=== PATIENT | male | born 1960 | race Caucasian/White ===

== ENCOUNTER → 2016-08-31 | Outpatient (CLI) | payer OTHER ==
--- NOTE | 2016-08-31 10:10 | CTL ---
EXAMINATION TYPE: CT Low Dose lung cancer screening DATE OF EXAM ORDERED: 08/31/2016 HISTORY: 56-year-old male history of tobacco use. Lung cancer screening CT DLP: 89.[address] CTDI: 2.95 mGy Automated exposure control for dose reduction was used. SCREENING VISIT: Baseline COMPARISON: None TECHNIQUE: Low dose computed tomography scan was performed through the chest at 1 mm thick sections and reconstructed images in the coronal plane at 1 mm thick sections. Coronal and sagittal reconstructions performed. CT DIAGNOSTIC QUALITY: Limited, but interpretable FINDINGS: The heart is normal size without pericardial effusion. Coronary vessel calcifications are present and are remarkable for coronary artery disease. Aorta is normal caliber with conventional arch vessel branching anatomy. A few nonenlarged mediastinal lymph nodes are present. No thoracic lymphadenopathy by CT size criteria. Mild to moderate diffuse bronchial wall thickening and mild centrilobular emphysema is demonstrated. Prominent artifacts from low-dose radiation protocol and patient's large body habitus. 3 mm pulmonary nodule right upper lobe axial image 49. 3 mm pulmonary nodule peripheral right upper lobe axial image 64. 4 mm pulmonary nodule peripheral right mid lung axial image 86. Mild dependent atelectasis posteriorly. There may be some subtle upper lung predominant, tiny 2 mm and smaller centrilobular nodules. No consolidation or pleural effusion. Visualized upper abdomen shows no obvious abnormality allowing for low dose technique and artifacts. Bones: Mild endplate spondylosis lower thoracic spine. No osseous destructive process. IMPRESSION: 1. Lung RADS 2 - benign appearance/behavior-- 3 and 4 mm right lung nodules at baseline. 2. COPD with mild emphysema and prominent component of chronic bronchitis versus superimposed acute bronchitis. 3. There appear to be tiny centrilobular nodules in the upper lungs. Findings may be seen in subacute hypersensitivity pneumonitis or respiratory bronchiolitis. Clinically correlate. RECOMMENDATION: 1. Continue annual screening with low-dose CT in 12 months. 2. Smoking cessation. MTDD
== END | disposition home or self-care (01) ==
LOC: RADCTMAIN 08:51
PROVIDERS: ATTEND Family Medicine
DX: Z12.2 Encounter for screening for malignant neoplasm of respiratory organs (principal); J43.9 Emphysema, unspecified; F17.210 Nicotine dependence, cigarettes, uncomplicated; R91.8 Other nonspecific abnormal finding of lung field

== ENCOUNTER → 2016-11-17 | Outpatient (CLI) | payer OTHER ==
--- NOTE | 2016-11-17 13:28 | XR ---
EXAMINATION TYPE: XR hand complete RT DATE OF EXAM: 11/17/2016 CLINICAL HISTORY: Right hand pain worse second digit after injury 2 months ago. TECHNIQUE: Frontal, lateral and oblique images of the right hand are obtained. COMPARISON: None. FINDINGS: There is no acute fracture/dislocation evident in the right hand. There is mild to moderat e spurring and joint space loss second DIP joint. There is mild to moderate spurring and joint space loss base of first metacarpal. The overlying soft tissue appears unremarkable. IMPRESSION: There is no acute fracture or dislocation in the right hand with particular attention to second digit of right hand.
== END ==
LOC: RADXRMAIN 12:55
PROVIDERS: ATTEND Family Medicine
DX: M79.641 Pain in right hand (principal)

== ENCOUNTER 2017-07-12 10:21 | Day surgery (SDC) | payer OTHER ==
[2017-07-07 14:52] VITALS: BMI 34.0
[~2017-07-12 10:21] MED LIST: LACTATED RINGERS 1,000 ML IV SCH
[2017-07-12 10:41] VITALS: TEMP 97.7
[2017-07-12] MEDS ORDERED: LIDOCAINE 1% INJ 10MG/ML (20 ML MDV) ONE (11:29)
[2017-07-12] MEDS ORDERED: PROPOFOL 10 MG/ML 20 ML VIAL IV ONE (11:29)
[2017-07-12 12:11] VITALS: RESP 16
--- NOTE | 2017-07-12 12:15 | P.PCN ---
Date of Procedure: 07/12/17 Procedure(s) Performed: Procedure: Colonoscopy. Preoperative diagnosis: Change in bowel habits. Postoperative diagnosis: Less than ideal preparation, otherwise, exam revealed no obvious pathology. Preparation: HalfLytely prep. Sedation: Was provided by anesthesia. Brief clinical history: The patient is a 57-year-old male who is referred for this evaluation because of issues with constipation. He had a prior colonoscopy more than 5 years ago. This evaluation is to assess for neoplasia or other pathology. Procedure: With the patient on his left lateral decubitus position and after informed consent and adequate sedation, the perianal area was inspected and it did not show any fissures or fistulas. There were no masses felt on digital rectal examination. The Olympus CFQ 160L video colonoscope was then inserted in the rectum in the usual fashion and advanced. Unfortunately, the preparation was less than ideal, especially on the right side, but no obvious pathology was noted. Small and diminutive polyps and superficial pathology could have been missed because of the preparation. I retroflexed the endoscope in the rectum before the endoscope was withdrawn. The patient tolerated the procedure well. Plan: The patient was reassured. Discussed dietary measures. He will follow up with you as planned and I recommended repeat exam in 2-3 years after a two- day preparation.
[2017-07-12 12:28] VITALS: BP 131/73; PULSE 54
== END 2017-07-12 12:58 | disposition home or self-care (01) ==
LOC: ORWHC2ENDO 10:21
DX: K59.00 Constipation, unspecified (principal); I10 Essential (primary) hypertension; E78.5 Hyperlipidemia, unspecified; K21.9 Gastro-esophageal reflux disease without esophagitis; I25.10 Atherosclerotic heart disease of native coronary artery without angina pectoris; Z95.5 Presence of coronary angioplasty implant and graft; Z79.82 Long term (current) use of aspirin; Z79.899 Other long term (current) drug therapy; Z88.6 Allergy status to analgesic agent; Z91.030 Bee allergy status; Z91.040 Latex allergy status; F17.210 Nicotine dependence, cigarettes, uncomplicated
CPT/HCPCS: 45378; J2001; J2704

== ENCOUNTER → 2017-12-19 | Outpatient (CLI) | payer OTHER ==
--- NOTE | 2017-12-20 08:42 | CTL ---
EXAMINATION TYPE: CT Low Dose Lung DATE OF EXAM ORDERED: 12/19/2017 COMPARISON: 08/31/2016 HISTORY: . Low Dose CT Lung Screening CT DLP: [address] CTDI: 3.6 mGy IV CONTRAST USED: None. SCREENING VISIT: First visit COMPARISON: None. TECHNIQUE: Low dose computed tomography scan was performed through the chest at 1 millimeter thick se ctions and reconstructed images in the coronal plane at [address] DIAGNOSTIC QUALITY: Satisfactory FINDINGS: 3 mm pulmonary nodule right upper lobe image 74 is stable. 3 mm pulmonary nodule right upper lobe image 47 is unchanged. 3 mm pulmonary nodule right upper lobe at its periphery image 1 is stable. 4 mm pulmonary nodule left upper lobe medially image 50 is stable. No new nodules are seen. LUNGS: COPD: Severity: Moderate Fibrosis: Severity: Mild Lymph nodes: None Other findings: None RIGHT PLEURAL SPACE: Effusion: None Calcification: None Thickening: None Pneumothorax: None LEFT PLEURAL SPACE: Effusion: None Calcification: None Thickening: None Pneumothorax: None HEART: Heart Size: Mildly enlarged Coronary calcification: Mild Pericardial effusion: None OTHER FINDINGS: Upper abdomen: No significant abnormality Bony thorax: Degenerative changes Supraclavicular region: No significant abnormalityOther: No significant abnormalityI IMPRESSION: 1. Lung RADS 2 benign appearance/behavior 2. COPD with emphysema and prominent chronic bronchitis. 3. Mild subpleural fibrosis. FOLLOW UP CT CHEST RECOMMENDATION: 1. Follow-up screening in one year 2. Smoking cessation.
== END | disposition home or self-care (01) ==
LOC: RADCTMAIN 16:12
PROVIDERS: ATTEND Family Medicine
DX: Z12.2 Encounter for screening for malignant neoplasm of respiratory organs (principal); J43.9 Emphysema, unspecified; J40 Bronchitis, not specified as acute or chronic; J84.10 Pulmonary fibrosis, unspecified; F17.200 Nicotine dependence, unspecified, uncomplicated

== ENCOUNTER → 2018-08-18 | Outpatient (CLI) | payer BC ==
[2018-08-18 10:05] LABS: HCT 51.6 % (39.0-53.0); HGB 16.4 gm/dL (13.0-17.5); MCHC 31.8 g/dL (31.0-37.0); MCV 97.4 fL (80.0-100.0); Mean Platelet Volume 7.4; Platelet Count 235 k/uL (150-450); RBC 5.29 m/uL (4.30-5.90); RDW 12.7 % (11.5-15.5); WBC 11.8 k/uL (3.8-10.6)
[2018-08-18 15:52] LABS: African American GFR (CKD) 107.2 (60.0-200.0); Albumin 4.2 g/dL (3.80-4.90); Albumin/Globulin Ratio 2.1 (1.60-3.17); Anion Gap 6.4 mmol/L (4.00-12.00); BUN/Creat Ratio 11.11 Ratio (12.00-20.00); Calcium 9.2 mg/dL (8.7-10.3); Carbon Dioxide 23.6 mmol/L (21.6-31.8); LDL Cholesterol,Calculated 72.8 mg/dL (0.0-131.0); Potassium 4.8 mmol/L (3.5-5.5); Total Bilirubin 0.3 mg/dL (0.3-1.2); Total Protein 6.2 g/dL (6.2-8.2); VLDL Calculation 31.2 mg/dL (5.00-40.00)
[2018-08-18 16:46] LABS: Hemoglobin A1C 6.2 % (4.0-6.0)
== END ==
LOC: LABWHC1 09:30
PROVIDERS: ATTEND Family Medicine
DX: E11.9 Type 2 diabetes mellitus without complications (principal); I10 Essential (primary) hypertension; Z79.899 Other long term (current) drug therapy
CPT/HCPCS: 36415; 80053; 80061; 83036; 84443; 85027

== ENCOUNTER → 2019-04-20 | Outpatient (CLI) | payer BC ==
[2019-04-20 08:27] LABS: HCT 51.1 % (39.0-53.0); HGB 16.5 gm/dL (13.0-17.5); MCH 31.1 pg (25.0-35.0); MCHC 32.2 g/dL (31.0-37.0); MCV 96.7 fL (80.0-100.0); Platelet Count 257 k/uL (150-450); RBC 5.29 m/uL (4.30-5.90); RDW 12.1 % (11.5-15.5); WBC 10.1 k/uL (3.8-10.6)
[2019-04-20 14:24] LABS: Hemoglobin A1C 5.8 % (4.0-6.0)
[2019-04-20 16:09] LABS: African American GFR (CKD) 84.1 (60.0-200.0); Albumin 4.3 g/dL (3.80-4.90); Albumin/Globulin Ratio 2.39 (1.60-3.17); Anion Gap 4.5 mmol/L (4.00-12.00); Calcium 8.9 mg/dL (8.7-10.3); Carbon Dioxide 26.5 mmol/L (21.6-31.8); Chol/HDL Ratio 4.16; Globulin 1.8 g/dL (1.6-3.3); LDL Cholesterol,Calculated 78.4 mg/dL (0.0-131.0); Non-African American GFR(CKD) 72.6 (60.0-200.0); Potassium 4.6 mmol/L (3.5-5.5); Total Bilirubin 0.4 mg/dL (0.3-1.2); Total Protein 6.1 g/dL (6.2-8.2); VLDL Calculation 19.6 mg/dL (5.00-40.00)
== END | disposition home or self-care (01) ==
LOC: LABWHC1 07:48
PROVIDERS: ATTEND Family Medicine
DX: E11.9 Type 2 diabetes mellitus without complications (principal)
CPT/HCPCS: 36415; 80053; 80061; 82306; 83036; 84153; 84443; 85027

== ENCOUNTER → 2022-07-20 | Outpatient (CLI) | payer BC ==
--- NOTE | 2022-07-20 08:10 | CTL ---
EXAMINATION TYPE: CT Low Dose Lung DATE OF EXAM ORDERED: 07/20/2022 COMPARISON: 12/19/2017 HISTORY: . Low Dose CT Lung Screening CT DLP: 128.[address] CTDI: 3.60 mGy IV CONTRAST USED: None. SCREENING VISIT: First visit COMPARISON: None. TECHNIQUE: Low dose computed tomography scan was performed through the chest at 1 millimeter thick se ctions and reconstructed images in the coronal plane at [address] DIAGNOSTIC QUALITY: Satisfactory FINDINGS: LUNG NODULES: 2 mm pulmonary nodule right upper lobe image 42 is unchanged. Subpleural 3 mm pulmonary nodule right upper lobe image 52 is unchanged. 3 mm right upper lobe pulmon mary nodule image 1 is stable. Left upper lobe pulmonary nodule seen previously is not reproduced at t his time. LUNGS: COPD: Severity: Moderate Fibrosis: Severity: Mild subpleural fibrosis at the lung bases. Lymph nodes: None Other findings: None RIGHT PLEURAL SPACE: Effusion: None Calcification: None Thickening: None Pneumothorax: None LEFT PLEURAL SPACE: Effusion: None Calcification: None Thickening: None Pneumothorax: None HEART: Heart Size: Mildly enlarged Coronary calcification: Mild Pericardial effusion: None OTHER FINDINGS: Upper abdomen: No significant abnormality Bony thorax: Degenerative changes Supraclavicular region: No significant abnormalityOther: No significant abnormalityI IMPRESSION: Stable appearance of the chest. FOLLOW UP CT CHEST RECOMMENDATION: Follow-up screening in one year. Smoking cessation recommended. CT LUNG RAD: Category 2 benign appearance and/or behavior. LUNG RAD CATEGORY
== END | disposition home or self-care (01) ==
LOC: RADCTMAIN 06:33
PROVIDERS: ATTEND Family Medicine
DX: Z12.2 Encounter for screening for malignant neoplasm of respiratory organs (principal); F17.210 Nicotine dependence, cigarettes, uncomplicated
CPT/HCPCS: 71271

== ENCOUNTER 2022-08-13 20:41 | Emergency (ER) | payer BC ==
[2022-08-13] MEDS ORDERED: KETOROLAC 15 MG/ML 1 ML VIAL IVP STA (21:17)
[2022-08-13] MEDS ORDERED: SODIUM CHLORIDE 0.9% 1,000 ML IV ONE (21:19)
--- NOTE | 2022-08-13 21:22 | ED ---
Male Urogenital HPI - General Chief complaint: Urogenital Stated complaint: Kidney Stone Time Seen by Provider: 08/13/22 20:50 Source: patient, RN notes reviewed Mode of arrival: ambulatory Limitations: no limitations - History of Present Illness Initial comments: This is a pleasant 62-year-old male presents to the emergency department complaining of urinary frequency, urgency, and pain at the "base of his penis." Patient actually pointing to his perineal area. Denies any fever or chills. No nausea or vomiting. No abdominal pain otherwise. No flank pain. No back pain. No rashes or lesions. No hematuria. No urethral discharge. No testicular pain. - Related Data Home Medications Medication Instructions Recorded Confirmed Multivitamins, Thera [Multivitamin] 1 tab PO DAILY 06/11/15 07/12/17 Telmisartan [Micardis] 40 mg PO DAILY 06/11/15 07/07/17 carvediloL [Coreg] 6.25 mg PO BID 06/11/15 07/07/17 Aspirin 325 mg PO DAILY 07/07/17 07/12/17 Nitroglycerin Sl Tabs [Nitrostat] 0.4 mg SUBLINGUAL Q5M PRN 07/07/17 07/07/17 Previous Rx's Medication Instructions Recorded Ciprofloxacin HCl [Cipro] 500 mg PO BID 56 Days #6 tab 08/13/22 Tamsulosin [Flomax] 0.4 mg PO DAILY #30 cap 08/13/22 Allergies Allergy/AdvReac Type Severity Reaction Status Date / Time latex Allergy Itching Verified 08/13/22 20:46 naproxen Allergy Itching Verified 08/13/22 20:46 venom-honey bee Allergy Anaphylaxis Verified 08/13/22 20:46 [bee venom (honey bee)] Review of Systems ROS Statement: Those systems with pertinent positive or pertinent negative responses have been documented in the HPI. ROS Other: All systems not noted in ROS Statement are negative. Past Medical History Past Medical History: Coronary Artery Disease (CAD), Hyperlipidemia, Hypertension Additional Past Medical History / Comment(s): CONSTIPATION History of Any Multi-Drug Resistant Organisms: None Reported Past Surgical History: Adenoidectomy, Appendectomy, Heart Catheterization With Stent, Joint Replacement, Tonsillectomy Additional Past Surgical History / Comment(s): bilateral hips, HEART STENT X2 Past Anesthesia/Blood Transfusion Reactions: No Reported Reaction Date of Last Stent Placement:: 2006 Past Psychological History: No Psychological Hx Reported Smoking Status: Current every day smoker Past Alcohol Use History: Occasional Past Drug Use History: None Reported General Exam - General Exam Comments Initial Comments: Vital signs stable, patient afebrile. Patient does not appear to be ill or toxic. Capillary refill less than 2 seconds. Cranial nerves II through XII grossly intact. Limitations: no limitations General appearance: alert, in no apparent distress Head exam: Present: atraumatic, normocephalic, normal inspection Eye exam: Present: normal appearance, PERRL, EOMI. Absent: scleral icterus, conjunctival injection, periorbital swelling ENT exam: Present: normal exam, normal oropharynx, mucous membranes moist, normal external ear exam Neck exam: Present: normal inspection, full ROM. Absent: tenderness, meningismus, lymphadenopathy Respiratory exam: Present: normal lung sounds bilaterally. Absent: respiratory distress, wheezes, rales, rhonchi, stridor, chest wall tenderness, accessory muscle use, decreased breath sounds, prolonged expiratory Cardiovascular Exam: Present: regular rate, normal rhythm, normal heart sounds. Absent: systolic murmur, diastolic murmur, rubs, gallop, clicks GI/Abdominal exam: Present: soft, normal bowel sounds. Absent: distended, tenderness, guarding, rebound, rigid Rectal exam: Present: normal inspection, normal rectal tone, other (No definitive prostate abnormality, no discernible calor or bogginess.). Absent: tenderness, prostate tenderness, prostate enlargement exam: Present: normal inspection. Absent: testicular tenderness, urethral discharge, scrotal swelling, vertical testicular lie Extremities exam: Present: normal inspection, full ROM, normal capillary refill. Absent: tenderness, pedal edema, joint swelling, calf tenderness Back exam: Present: normal inspection Neurological exam: Present: alert, oriented X3, CN II-XII intact Psychiatric exam: Present: normal affect, normal mood Skin exam: Present: warm, dry, intact, normal color. Absent: rash Course Vital Signs 08/13/22 20:44 Temperature 98.8 F Pulse Rate 90 Respiratory 20 Rate Blood Pressure 159/73 O2 Sat by Pulse 95 Oximetry - Reevaluation(s) Reevaluation #1: 08/13/22 22:11 Patient reevaluated, urinalysis consistent with possible infectious process, white cells 17, red cells 25, occasional mucus Computed tomography scan independently interpreted by me shows no definitive evidence of ureteral stone. Some haziness around the urinary bladder. No other acute findings. Reviewed radiology interpretation. Question of bladder wall thickening according to radiology. Right-sided hydronephrosis. Patient reevaluated, improved after ketorolac. No evidence of urinary retention. No evidence of significant systemic disease. We'll treat with ciprofloxacin. Since the patient does have pain in the perineal area. To cover for possible prostatitis with a 28 day course. We'll have the patient follow up with urology on Tuesday or Tuesday. Antibiotics can be tailored from there. Medical Decision Making - Medical Decision Making Was pt. sent in by a medical professional or institution? @ -[no] Did you speak to anyone other than the patient for history? @ -no Did you review nursing and triage notes? @ -agree Were old charts reviewed? @ -no Differential Diagnosis? @ -Prostatitis, cystitis, ureteral stone, does not appear to be consistent with diverticulitis or appendicitis. Does not appear to be consistent with testicular torsion, orchiditis, or scrotal cellulitis/abscess. Neck consistent with Marcos's gangrene. Does not appear to be consistent with significant systemic infection. Patient afebrile, white blood cell count is normal. Patient does not appear to be clinically ill. Urinary retention also possible although the patient is able to urinate. EKG interpreted by me (3pts min.)? @ -[none] X-rays interpreted by me (1pt min.)? @ -[none] CT interpreted by me (1pt min.)? @ -CT ED course, interpreted by me. Question bladder wall thickening and right-sided hydronephrosis. Corroborated by radiology report. U/S interpreted by me (1pt. min.)? @ -[none] What testing was considered but not performed? (CT, X-rays, U/S, labs)? Why? @I did consider lactic acid, however, patient does not appear to be systemically ill. Suspect the patient will be discharged. Blood cultures were considered as well. Lactic acid and blood cultures were deferred as I did not think they would change the course of treatment What meds were considered but not given? Why? @ -Pyridium was also considered. Patient was prescribed ciprofloxacin 500 mg twice a day for 20 days, Flomax 0.4 mg once daily. Did you discuss the management of the patient with other professionals? @ -The case was discussed in detail with ED attending physician. Presentation, findings, treatment plan discussed in detail. Did you reconcile home meds? @ -[none] Was smoking cessation discussed for >3mins.? @ -Discussed for greater than 3 minutes, risk, benefits, possible treatments discussed. Patient voiced understanding Was critical care preformed (if so, how long)? @ -[none] Were there social determinants of health that impacted care today? How? (Homelessness, low income, unemployed, alcoholism, drug addiction, transportation, low edu. Level, literacy, decrease access to med. care, group home, rehab)? @ -No obvious impediments Was there de-escalation of care discussed even if they declined? (Discuss DNR or withdrawal of care, Hospice)? @ -Not applicable What co-morbidities impacted this encounter? (DM, HTN, Smoking, COPD, CAD, Cancer, CVA, Hep., AIDS, mental health diagnosis, sleep apnea, morbid obesity)? @ -Cardiac disease, no specific contribution to this visit. Was patient admitted / discharged? @ -Discharged Undiagnosed new problem with uncertain prognosis? @ -New problem, uncertain prognosis. Does not appear to be risk for clinical deterioration, harm to bodily function her life. Of course patient has been put on ciprofloxacin, kidney function will need to be monitored. We'll have the patient follow-up on Tuesday or Tuesday with urology. Drug Therapy requiring intensive monitoring for toxicity (Heparin, Nitro, Insulin, Cardizem)? @ -[none] Were any procedures done? @ -[none] Diagnosis/symptom? @ -Acute cystitis, possible prostatitis, right-sided hydronephrosisappears to be relatively limited. No evidence of systemic infectious process. Unlikely to be any immediate threat to bodily function her life. Acute, or Chronic, or Acute on Chronic? @ -Acute Uncomplicated (without systemic symptoms) or Complicated (systemic symptoms)? @ -No significant systemic symptoms, uncomplicated Side effects of treatment? @ -[none] Exacerbation, Progression, or Severe Exacerbation] @ -[no] Poses a threat to life or bodily function? @ -[no] Patient has a bit of a mixed clinical picture. Patient will be treated for cystitis. However the patient has pain in his perineum. There was no evidence of abscess or overlying cellulitis. I'm suspicious that the patient may have early prostatitis. Rectal exam did not reveal any bogginess or calor. However for this reason I'm going to cover the patient with sent 500 mg twice a day. We'll have him follow-up with urology. I did prescribe a 20 day course. Urology can tailor treatment after the patient is rechecked on Tuesday or Tuesday. Patient concurs with this medical treatment. Patient was told to return to the ER for any signs or symptoms worsen. Told to return immediately if any other problems arise. All questions answered. Treatment plan discussed. Patient in agreement Every effort has been made to ensure accuracy of this dictation. However, due to the limitations of electronic medical records and dictation devices, errors in charting still occur. - Lab Data Result diagrams: 08/13/22 21:14 08/13/22 21:14 Lab Results 08/13/22 08/13/22 08/13/22 Range/Units 21:14 21:14 21:14 WBC 10.4 (3.8-10.6) k/uL RBC 4.92 (4.30-5.90) m/uL Hgb 15.8 (13.0-17.5) gm/dL Hct 47.5 (39.0-53.0) % MCV 96.7 (80.0-100.0) fL MCH 32.2 (25.0-35.0) pg MCHC 33.3 (31.0-37.0) g/dL RDW 12.2 (11.5-15.5) % Plt Count 217 (150-450) k/uL MPV 8.2 Neutrophils % 54 % Lymphocytes % 29 % Monocytes % 12 % Eosinophils % 3 % Basophils % 0 % Neutrophils # 5.7 (1.3-7.7) k/uL Lymphocytes # 3.0 (1.0-4.8) k/uL Monocytes # 1.2 H (0-1.0) k/uL Eosinophils # 0.3 (0-0.7) k/uL Basophils # 0.0 (0-0.2) k/uL Sodium 137 (137-145) mmol/L Potassium 4.3 (3.5-5.1) mmol/L Chloride 103 (98-107) mmol/L Carbon Dioxide 26 (22-30) mmol/L Anion Gap 8 mmol/L BUN 15 (9-20) mg/dL Creatinine 1.04 (0.66-1.25) mg/dL Est GFR (CKD-EPI)AfAm 88 (>60 ml/min/1.73 sqM) Est GFR (CKD-EPI)NonAf 76 (>60 ml/min/1.73 sqM) Glucose 115 H (74-99) mg/dL Calcium 8.7 (8.4-10.2) mg/dL Urine Color Yellow Urine Appearance Clear (Clear) Urine pH 5.5 (5.0-8.0) Ur Specific [place] 1.022 (1.001-1.035) Urine Protein Trace H (Negative) Urine Glucose (UA) Negative (Negative) Urine Ketones Negative (Negative) Urine Blood Moderate H (Negative) Urine Nitrite Negative (Negative) Urine Bilirubin Negative (Negative) Urine Urobilinogen <2.0 (<2.0) mg/dL Ur Leukocyte Esterase Small H (Negative) Urine RBC 25 H (0-5) /hpf Urine WBC 17 H (0-5) /hpf Ur Squamous Epith Cells <1 (0-4) /hpf Urine Mucus Occasional H (None) /hpf Disposition Clinical Impression: Acute cystitis without hematuria, Prostatitis, acute, Hydronephrosis, right Disposition: HOME SELF-CARE Condition: Stable Instructions (If sedation given, give patient instructions): Prostatitis (ED), Urinary Tract Infection in Men (ED), Hydronephrosis (ED) Additional Instructions: Call the urologist at 8 AM Tuesday morning to schedule follow-up appointment for recheck on Tuesday or Tuesday. Drink plenty of fluids. Take antibiotics as directed. Take Flomax daily. Follow-up with your regular physician as directed. Return to the ER immediately if any symptoms worsen, new symptoms arise, or any other problems develop. Prescriptions: Ciprofloxacin HCl [Cipro] 500 mg PO BID 56 Days #6 tab Tamsulosin [Flomax] 0.4 mg PO DAILY #30 cap Is patient prescribed a controlled substance at d/c from ED?: No Referrals: Riley Lewis MD [Primary Care Provider] - 08/16/22 8:00 am Flaco Easley MD [STAFF PHYSICIAN] - 08/16/22 8:00 am Time of Disposition: 22:15
[2022-08-13 21:24] LABS: Basophils % (A) 0 %; Eosinophils # (A) 0.3 k/uL (0-0.7); Eosinophils % (A) 3 %; HCT 47.5 % (39.0-53.0); HGB 15.8 gm/dL (13.0-17.5); Lymphocytes % (A) 29 %; MCH 32.2 pg (25.0-35.0); MCHC 33.3 g/dL (31.0-37.0); MCV 96.7 fL (80.0-100.0); Mean Platelet Volume 8.2; Monocytes # (A) 1.2 k/uL (0-1.0); Monocytes % (A) 12 %; Neutrophils # (A) 5.7 k/uL (1.3-7.7); Neutrophils % (A) 54 %; Platelet Count 217 k/uL (150-450); RBC 4.92 m/uL (4.30-5.90); RDW 12.2 % (11.5-15.5); WBC 10.4 k/uL (3.8-10.6)
[2022-08-13 21:28] LABS: Appearance,Urine Clear (Clear); Bilirubin,Urine Negative (Negative); Blood,Urine Moderate (Negative); Color,Urine Yellow; Glucose,Urine (UA) Negative (Negative); Ketones,Urine Negative (Negative); Leukocyte Esterase,Urine Small (Negative); Mucus,Urine Occasional /hpf; Nitrite,Urine Negative (Negative); PH, Urine 5.5 (5.0-8.0); Protein,Urine Trace (Negative); RBC,Urine 25 /hpf (0-5); Specific Gravity,Urine 1.022 (1.001-1.035); Squamous Epithelial Cell,Urine <1 /hpf (0-4); Urobilinogen,Urine <2.0 mg/dL (<2.0); WBC,Urine 17 /hpf (0-5)
[2022-08-13 21:33] LABS: African American GFR (CKD) 88 (>60 ml/min/1.73 sqM); Anion Gap 8 mmol/L; Blood Urea Nitrogen 15 mg/dL (9-20); Calcium 8.7 mg/dL (8.4-10.2); Carbon Dioxide 26 mmol/L (22-30); Chloride 103 mmol/L (98-107); Glucose 115 mg/dL (74-99); Non-African American GFR(CKD) 76 (>60 ml/min/1.73 sqM); Potassium 4.3 mmol/L (3.5-5.1); Sodium 137 mmol/L (137-145)
--- NOTE | 2022-08-13 22:04 | CT ---
EXAMINATION TYPE: CT abdomen pelvis w con CT DLP: 1462.9 mGycm, Automated exposure control for dose reduction was used. DATE OF EXAM: 08/13/2022 9:57 PM COMPARISON: CT abdomen pelvis most recent from CLINICAL INDICATION:Male, 62 years old with history of Urinary urgency, perineal area pain; Urinary u rgency, perineal area pain. hx of ureteral stent and twin kidneys. TECHNIQUE: Axial CT of the abdomen and pelvis. Sagittal and coronal reformats were created on a [employer] workstation. Contrast used:100ml mL of Isovue 300 with IV Contrast, (none if empty) Oral contrast used: without Oral Contrast (none if empty) FINDINGS: LOWER CHEST: Unremarkable ABDOMEN LIVER: Unremarkable GALLBLADDER AND BILE DUCTS: Unremarkable. PANCREAS: Unremarkable. SPLEEN: Unremarkable. ADRENAL GLANDS: Unremarkable. KIDNEYS AND URETERS: Moderate right hydronephrosis ureteral nephrosis with limited evaluation of the distal ureter secondary to streak artifact from hip prostheses. Multiple left renal cysts and right i nferior kidney indeterminate lesion measuring up to 4.3 x 2.9 cm and 42 Hounsfield units.. PELVIS Poorly visualized secondary to streak artifact. BLADDER: Limited evaluation secondary streak artifact. There may be circumferential wall thickening. REPRODUCTIVE: Unremarkable. ABDOMEN & PELVIS STOMACH AND BOWEL: No evidence of bowel obstruction. The appendix is normal. PERITONEUM/RETROPERITONEUM: No evidence of pneumoperitoneum or free fluid. VASCULATURE: Mild atherosclerotic calcifications are present throughout the abdominal aorta and its b ranches. No evidence of aortic aneurysm. MUSCULOSKELETAL: No acute osseous abnormalities. Mild disc degeneration changes are present throughou t the thoracolumbar spine., bilateral hip prostheses which limits evaluation. LYMPH NODES: No gross evidence for lymphadenopathy. SOFT TISSUE/ABDOMINAL WALL: Unremarkable IMPRESSION: 1. Possible circumferential wall thickening of the urinary bladder correlate with urinalysis for cys titis. 2. Moderate right hydroureteronephrosis with limited evaluation of the distal ureter secondary to st reak artifact from hip prostheses. No obvious calculus visualized. No additional acute intra-abdomina l process. 3. Indeterminate right inferior renal lesion could represent proteinaceous/hemorrhagic cyst. Complet e evaluation with MRI renal mass protocol is recommended for further characterization.
[2022-08-13] MEDS ORDERED: LEVOFLOXACIN 500 MG TAB PO STA (22:08)
[2022-08-13 22:42] VITALS: BP 132/80; PULSE 70; RESP 16; TEMP 98.1
== END 2022-08-13 22:43 | disposition home or self-care (01) ==
LOC: EC 20:41
DX: N30.00 Acute cystitis without hematuria (principal); N42.81 Prostatodynia syndrome; N13.30 Unspecified hydronephrosis; I10 Essential (primary) hypertension; I25.10 Atherosclerotic heart disease of native coronary artery without angina pectoris; E78.5 Hyperlipidemia, unspecified; F17.200 Nicotine dependence, unspecified, uncomplicated; Z79.899 Other long term (current) drug therapy; Z91.040 Latex allergy status; Z91.030 Bee allergy status; Z88.8 Allergy status to other drugs, medicaments and biological substances
CPT/HCPCS: 51798; 36415; 80048; 85025; 81001; 87491; 87591; 87086; 74177; 99284; 96374; 96361; J1885; Q9967

== ENCOUNTER → 2022-12-10 | Outpatient (CLI) | payer BC ==
--- NOTE | 2022-12-10 17:43 | US ---
EXAMINATION TYPE: US kidneys/renal and bladder DATE OF EXAM: 12/10/2022 COMPARISON: CT CLINICAL INDICATION: Male, 62 years old with history of D41.01 CA OF KIDNEY; Abnormal CT EXAM MEASUREMENTS: Right Kidney: 8.6 x 4.6 x 5.3 cm Left Kidney: 14.0 x 5.7 x 6.3 cm Pt states h/o right renal surgery as a child due to infection Right Kidney: Small in size, abnormal/abrupt lower pole with complex lesion= 3.1 x 3.0 x 3.6 cm Left Kidney: Enlarged, double collecting system with cystic lesion medial= 2.7 x 2.3 x 3.6 cm Bladder: wnl Bilateral Jets seen: No There is no evidence for hydronephrosis at this point in time. No nephrolithiasis is seen. No saulo s are identified. The urinary bladder is anechoic. Bilateral ureteral jets are seen. IMPRESSION: 1. No evidence for obstructive uropathy. 2. Bilateral renal cysts. On the right slightly complex-appearing. 3. Duplex left renal collecting system.
== END | disposition home or self-care (01) ==
LOC: RADUSWWP 15:33
PROVIDERS: ATTEND Urology
DX: D41.01 Neoplasm of uncertain behavior of right kidney (principal); N28.1 Cyst of kidney, acquired
CPT/HCPCS: 76770

== ENCOUNTER 2023-04-30 19:33 | Emergency (ER) | payer BC ==
--- NOTE | 2023-04-30 19:50 | ED ---
Neuro HPI - General Chief Complaint: Neuro Symptoms/Deficit Stated Complaint: face drooping-possible stroke Time Seen by Provider: 04/30/23 19:42 Source: patient, RN notes reviewed, old records reviewed Mode of arrival: ambulatory Limitations: no limitations - History of Present Illness Is the patient presenting with stroke symptoms?: Yes -: days(s) (4) Initial Comments: This is a 62-year-old male to the ER for evaluation today. Patient coming in today for evaluation of not feeling well. Concern for facial weakness and inability to move the right side of his face patient has right-sided facial dr oop which has been going on for 4 days and has been persistent with no improvement Location: speech, right face, dysarthria Place: home Severity: severe Improves With: none Worsens With: none On Anticoagulants: Yes Context: sudden onset Associated Symptoms: denies other symptoms - Related Data Home Medications: Home Medications Medication Instructions Recorded Confirmed Multivitamins, Thera [Multivitamin] 1 tab PO DAILY 06/11/15 07/12/17 Telmisartan [Micardis] 40 mg PO DAILY 06/11/15 07/07/17 carvediloL [Coreg] 6.25 mg PO BID 06/11/15 07/07/17 Aspirin 325 mg PO DAILY 07/07/17 07/12/17 Nitroglycerin Sl Tabs [Nitrostat] 0.4 mg SUBLINGUAL Q5M PRN 07/07/17 07/07/17 Previous Rx's Medication Instructions Recorded Ciprofloxacin HCl [Cipro] 500 mg PO BID 56 Days #6 tab 08/13/22 Tamsulosin [Flomax] 0.4 mg PO DAILY #30 cap 08/13/22 predniSONE [Deltasone] 40 mg PO BID #28 tab 04/30/23 valACYclovir HCL [Valtrex] 1,000 mg PO TID #21 tablet 04/30/23 Allergies/Adverse Reactions: Allergies Allergy/AdvReac Type Severity Reaction Status Date / Time latex Allergy Itching Verified 04/30/23 19:40 naproxen Allergy Itching Verified 04/30/23 19:40 venom-honey bee Allergy Anaphylaxis Verified 04/30/23 19:40 [bee venom (honey bee)] Review of Systems ROS Statement: Those systems with pertinent positive or pertinent negative responses have been documented in the HPI. ROS Other: All systems not noted in ROS Statement are negative. General Exam Limitations: no limitations General appearance: alert, in no apparent distress, anxious Head exam: Present: atraumatic, normocephalic, normal inspection Eye exam: Present: normal appearance, PERRL, EOMI. Absent: scleral icterus, conjunctival injection, periorbital swelling ENT exam: Present: normal exam, mucous membranes moist Neck exam: Present: normal inspection. Absent: tenderness, meningismus, lymphadenopathy Respiratory exam: Present: normal lung sounds bilaterally. Absent: respiratory distress, wheezes, rales, rhonchi, stridor Cardiovascular Exam: Present: regular rate, normal rhythm, normal heart sounds. Absent: systolic murmur, diastolic murmur, rubs, gallop, clicks GI/Abdominal exam: Present: soft, normal bowel sounds. Absent: distended, tenderness, guarding, rebound, rigid Extremities exam: Present: normal inspection, full ROM, normal capillary refill. Absent: tenderness, pedal edema, joint swelling, calf tenderness Back exam: Present: normal inspection Neurological exam: Present: alert, oriented X3, CN II-XII intact Psychiatric exam: Present: normal affect, normal mood Skin exam: Present: warm, dry, intact, normal color. Absent: rash Stroke MDM - Lab Data Result diagrams: 04/30/23 19:50 04/30/23 19:50 Lab Results 04/30/23 04/30/23 04/30/23 Range/Units 19:50 19:50 19:50 WBC 15.5 H (3.8-10.6) k/uL RBC 5.21 (4.30-5.90) m/uL Hgb 16.9 (13.0-17.5) gm/dL Hct 53.0 (39.0-53.0) % MCV 101.7 H (80.0-100.0) fL MCH 32.5 (25.0-35.0) pg MCHC 32.0 (31.0-37.0) g/dL RDW 12.6 (11.5-15.5) % Plt Count 234 (150-450) k/uL MPV 8.5 Neutrophils % 71 % Lymphocytes % 20 % Monocytes % 6 % Eosinophils % 1 % Basophils % 0 % Neutrophils # 11.0 H (1.3-7.7) k/uL Lymphocytes # 3.1 (1.0-4.8) k/uL Monocytes # 0.9 (0-1.0) k/uL Eosinophils # 0.2 (0-0.7) k/uL Basophils # 0.1 (0-0.2) k/uL Sodium 139 (137-145) mmol/L Potassium 4.2 (3.5-5.1) mmol/L Chloride 107 (98-107) mmol/L Carbon Dioxide 27 (22-30) mmol/L Anion Gap 5 mmol/L BUN 21 H (9-20) mg/dL Creatinine 1.39 H (0.66-1.25) mg/dL Est GFR (CKD-EPI)AfAm 62 (>60 ml/min/1.73 sqM) Est GFR (CKD-EPI)NonAf 53 (>60 ml/min/1.73 sqM) Glucose 109 H (74-99) mg/dL Calcium 9.3 (8.4-10.2) mg/dL Phosphorus 3.4 (2.5-4.5) mg/dL Magnesium 2.0 (1.6-2.3) mg/dL Total Bilirubin 0.5 (0.2-1.3) mg/dL AST 34 (17-59) U/L ALT 25 (4-49) U/L Alkaline Phosphatase 81 (38-126) U/L Troponin I <0.012 (0.000-0.034) ng/mL NT-Pro-B Natriuret Pep 151 pg/mL Total Protein 7.0 (6.3-8.2) g/dL Albumin 4.5 (3.5-5.0) g/dL Urine Color Urine Appearance (Clear) Urine pH (5.0-8.0) Ur Specific [place] (1.001-1.035) Urine Protein (Negative) Urine Glucose (UA) (Negative) Urine Ketones (Negative) Urine Blood (Negative) Urine Nitrite (Negative) Urine Bilirubin (Negative) Urine Urobilinogen (<2.0) mg/dL Ur Leukocyte Esterase (Negative) Urine RBC (0-5) /hpf Urine WBC (0-5) /hpf Urine Mucus (None) /hpf Influenza Type A (PCR) (Not Detectd) Influenza Type B (PCR) (Not Detectd) RSV (PCR) (Not Detectd) SARS-CoV-2 (PCR) (Not Detectd) 04/30/23 04/30/23 Range/Units 20:04 20:05 WBC (3.8-10.6) k/uL RBC (4.30-5.90) m/uL Hgb (13.0-17.5) gm/dL Hct (39.0-53.0) % MCV (80.0-100.0) fL MCH (25.0-35.0) pg MCHC (31.0-37.0) g/dL RDW (11.5-15.5) % Plt Count (150-450) k/uL MPV Neutrophils % % Lymphocytes % % Monocytes % % Eosinophils % % Basophils % % Neutrophils # (1.3-7.7) k/uL Lymphocytes # (1.0-4.8) k/uL Monocytes # (0-1.0) k/uL Eosinophils # (0-0.7) k/uL Basophils # (0-0.2) k/uL Sodium (137-145) mmol/L Potassium (3.5-5.1) mmol/L Chloride (98-107) mmol/L Carbon Dioxide (22-30) mmol/L Anion Gap mmol/L BUN (9-20) mg/dL Creatinine (0.66-1.25) mg/dL Est GFR (CKD-EPI)AfAm (>60 ml/min/1.73 sqM) Est GFR (CKD-EPI)NonAf (>60 ml/min/1.73 sqM) Glucose (74-99) mg/dL Calcium (8.4-10.2) mg/dL Phosphorus (2.5-4.5) mg/dL Magnesium (1.6-2.3) mg/dL Total Bilirubin (0.2-1.3) mg/dL AST (17-59) U/L ALT (4-49) U/L Alkaline Phosphatase (38-126) U/L Troponin I (0.000-0.034) ng/mL NT-Pro-B Natriuret Pep pg/mL Total Protein (6.3-8.2) g/dL Albumin (3.5-5.0) g/dL Urine Color Yellow Urine Appearance Clear (Clear) Urine pH 6.5 (5.0-8.0) Ur Specific [place] 1.028 (1.001-1.035) Urine Protein 1+ H (Negative) Urine Glucose (UA) Negative (Negative) Urine Ketones Negative (Negative) Urine Blood Negative (Negative) Urine Nitrite Negative (Negative) Urine Bilirubin Negative (Negative) Urine Urobilinogen 2.0 (<2.0) mg/dL Ur Leukocyte Esterase Negative (Negative) Urine RBC 1 (0-5) /hpf Urine WBC 1 (0-5) /hpf Urine Mucus Rare H (None) /hpf Influenza Type A (PCR) Not Detected (Not Detectd) Influenza Type B (PCR) Not Detected (Not Detectd) RSV (PCR) Not Detected (Not Detectd) SARS-CoV-2 (PCR) Not Detected (Not Detectd) - NIH Stroke Scale 1a. Level of Consciousness: (0) alert 1b. LOC Questions: (0) answers correctly 1c. LOC Commands: (0) performs tasks correctly 2. Best Gaze: (0) normal 3. Visual: (0) no visual loss 4. Facial Palsy: (3) complete paralysis 5a. Motor Arm Left: (0) no drift 5b. Motor Arm Right: (0) no drift 6a. Motor Leg Left: (0) no drift 6b. Motor Leg Right: (0) no drift 7. Limb Ataxia: (0) absent 8. Sensory: (0) normal 9. Best Language: (1) mild/moderate aphasia 10. Dysarthria: (1) mild/moderate dysarthria 11. Extinction/Inattention: (0) no abnormality - Thrombolytic Inclusion/Exclusion Thrombolytic Exclusion Criteria: Symptom Onset > 4.5 Hours - Medical Decision Making 62 male to the ER for evaluation today. Patient comes in with right-sided facial droop, symptoms consistent with Alvarez's palsy. Patient has normal testing here in the ER and can be discharged home - Radiology Data Radiology results: report reviewed (CT brain is negative for acute disease), image reviewed - EKG Data -: EKG Interpreted by Me (EKG is sinus 80 OH 165 QRS 89 QTc 385) Past Medical History Past Medical History: Coronary Artery Disease (CAD), Hyperlipidemia, Hypertension Additional Past Medical History / Comment(s): CONSTIPATION History of Any Multi-Drug Resistant Organisms: None Reported Past Surgical History: Adenoidectomy, Appendectomy, Heart Catheterization With Stent, Joint Replacement, Tonsillectomy Additional Past Surgical History / Comment(s): bilateral hips, HEART STENT X2 Past Anesthesia/Blood Transfusion Reactions: No Reported Reaction Date of Last Stent Placement:: 2006 Past Psychological History: No Psychological Hx Reported Smoking Status: Current every day smoker Past Alcohol Use History: Occasional Past Drug Use History: None Reported Course Vital Signs 04/30/23 04/30/23 19:37 20:18 Temperature 97.9 F Pulse Rate 69 71 Respiratory 18 16 Rate Blood Pressure 174/104 167/98 O2 Sat by Pulse 98 96 Oximetry - Reevaluation(s) Reevaluation #1: 04/30/23 19:49 Medical records reviewed Reevaluation #2: 04/30/23 19:49 Patient symptoms unchanged Reevaluation #3: 04/30/23 19:49 Patient informed of results and questions answered Reevaluation #4: Was pt. sent in by a medical professional or institution (, NUPUR, AUTOMATIC PAINT SPRAYER OPERATOR, urgent care, hospital, or detention...) When possible be specific @ -no Did you speak to anyone other than the patient for history (EMS, parent, family, police, friend...)? What history was obtained from this source @ -no Did you review nursing and triage notes (agree or disagree)? Why? @ -agree Are old charts reviewed (outside hosp., previous admission, EMS record, old EKG, old radiological studies, urgent care reports/EKG's, detention records)? Report findings @ -yes Differential Diagnosis (chest pain, altered mental status, abdominal pain women, abdominal pain men, vaginal bleeding, weakness, fever, dyspnea, syncope, headache, dizziness, GI bleed, back pain, seizure, CVA, palpatations, mental health, musculoskeletal)? @ -prior EKG interpreted by me (3pts min.). @ -yes X-rays interpreted by me (1pt min.). @ -no CT interpreted by me (1pt min.). @ -Yes negative for acute disease U/S interpreted by me (1pt. min.). @ -no What testing was considered but not performed or refused? (CT, X-rays, U/S, labs)? Why? @ -none What meds were considered but not given or refused? Why? @ -none Did you discuss the management of the patient with other professionals (professionals i.e. Dr., PA, AUTOMATIC PAINT SPRAYER OPERATOR, lab, RT, psych nurse, social contact worker, transportation planner, teacher, military source operations officer, piano case and bench assembler)? Give summary @ -no Was smoking cessation discussed for >3mins.? @ -no Was critical care preformed (if so, how long)? @ -no Were there social determinants of health that impacted care today? How? (Homelessness, low income, unemployed, alcoholism, drug addiction, transportation, low edu. Level, literacy, decrease access to med. care, intermediate, rehab)? @ -none Was there de-escalation of care discussed even if they declined (Discuss DNR or withdrawal of care, Hospice)? DNR status @ -no What co-morbidities impacted this encounter? (DM, HTN, Smoking, COPD, CAD, Cancer, CVA, ARF, Chemo, Hep., AIDS, mental health diagnosis, sleep apnea, morbid obesity)? @ -none Was patient admitted / discharged? Hospital course, mention meds given and route, prescriptions, significant lab abnormalities, going to OR and other pertinent info. @ - 62 male to the ER for evaluation today. Patient comes in with right-sided facial droop, symptoms consistent with Alvarez's palsy. Patient has normal testing here in the ER and can be discharged home discharge Undiagnosed new problem with uncertain prognosis? @ -no Drug Therapy requiring intensive monitoring for toxicity (Heparin, Nitro, Insulin, Cardizem)? @ -no Were any procedures done? @ -no Diagnosis/symptom? @ -Alvarez's palsy with right ear pain Acute, or Chronic, or Acute on Chronic? @ -Acute Uncomplicated (without systemic symptoms) or Complicated (systemic symptoms)? @ -Complicated Side effects of treatment? @ -no Exacerbation, Progression, or Severe Exacerbation? @ -exacerbation Poses a threat to life or bodily function? How? (Chest pain, [place], [place], pneumonia, PE, COPD, DKA, ARF, appy, cholecystitis, CVA, Diverticulitis, Homicidal, Suic idal, threat to staff... and all critical care pts) @ -yes possibility of CVA Reevaluation #5: Differential CVA Ischemic stroke, hemorrhagic stroke, brain tumor, atypical migraine, Wernicke's encephalopathy, seizure, multiple sclerosis, meningitis, encephalitis, hypoglyce jennifer, Guillain-Rogers, electrolytes disturbance, myasthenia gravis.... This is not meant to be an all-inclusive list Disposition Clinical Impression: Alvarez's palsy Disposition: HOME SELF-CARE Condition: Good Prescriptions: predniSONE [Deltasone] 40 mg PO BID #28 tab valACYclovir HCL [Valtrex] 1,000 mg PO TID #21 tablet Is patient prescribed a controlled substance at d/c from ED?: No Referrals: Riley Lewis MD [Primary Care Provider] - 1-2 days Time of Disposition: 20:45
[2023-04-30 19:57] VITALS: TEMP 97.9
[2023-04-30 20:04] LABS: Basophils # (A) 0.1 k/uL (0-0.2); Basophils % (A) 0 %; Eosinophils # (A) 0.2 k/uL (0-0.7); Eosinophils % (A) 1 %; HGB 16.9 gm/dL (13.0-17.5); Lymphocytes # (A) 3.1 k/uL (1.0-4.8); Lymphocytes % (A) 20 %; MCH 32.5 pg (25.0-35.0); MCV 101.7 fL (80.0-100.0); Mean Platelet Volume 8.5; Monocytes # (A) 0.9 k/uL (0-1.0); Monocytes % (A) 6 %; Neutrophils % (A) 71 %; Platelet Count 234 k/uL (150-450); RBC 5.21 m/uL (4.30-5.90); RDW 12.6 % (11.5-15.5); WBC 15.5 k/uL (3.8-10.6)
[2023-04-30 20:14] LABS: ALT 25 U/L (4-49); AST 34 U/L (17-59); African American GFR (CKD) 62 (>60 ml/min/1.73 sqM); Albumin 4.5 g/dL (3.5-5.0); Alkaline Phosphatase 81 U/L (38-126); Anion Gap 5 mmol/L; Blood Urea Nitrogen 21 mg/dL (9-20); Calcium 9.3 mg/dL (8.4-10.2); Carbon Dioxide 27 mmol/L (22-30); Chloride 107 mmol/L (98-107); Glucose 109 mg/dL (74-99); Non-African American GFR(CKD) 53 (>60 ml/min/1.73 sqM); Phosphorus 3.4 mg/dL (2.5-4.5); Potassium 4.2 mmol/L (3.5-5.1); Sodium 139 mmol/L (137-145); Total Bilirubin 0.5 mg/dL (0.2-1.3)
[2023-04-30] MEDS: SODIUM CHLORIDE 0.9% 1,000 ML IV STA (20:19)
[2023-04-30 20:23] LABS: Appearance,Urine Clear (Clear); Bilirubin,Urine Negative (Negative); Blood,Urine Negative (Negative); Color,Urine Yellow; Glucose,Urine (UA) Negative (Negative); Ketones,Urine Negative (Negative); Leukocyte Esterase,Urine Negative (Negative); Mucus,Urine Rare /hpf; Nitrite,Urine Negative (Negative); PH, Urine 6.5 (5.0-8.0); Protein,Urine 1+ (Negative); RBC,Urine 1 /hpf (0-5); Specific Gravity,Urine 1.028 (1.001-1.035); WBC,Urine 1 /hpf (0-5)
--- NOTE | 2023-04-30 20:23 | CT ---
EXAMINATION TYPE: CT brain wo con CT DLP: 1138.4 mGycm, Automated exposure control for dose reduction was used. DATE OF EXAM: 04/30/2023 8:07 PM COMPARISON: None. CLINICAL INDICATION:Male, 62 years old with history of MERCHANT, RT side facial drooping, headache TECHNIQUE: Brain: Axial CT images of the brain were obtained with coronal and sagittal reformats created and rev iewed. Contrast used: None. Oral contrast used: None. FINDINGS: Extra-axial spaces: No abnormal extra-axial fluid collections. Ventricular system: Within normal limits. Cerebral parenchyma: No increased attenuation to suggest acute intraparenchymal hemorrhage. The gra y-white matter interface appears maintained. No significant atrophy. White matter unremarkable by C T. Cerebellum: No acute abnormality. Mass effect: No evidence of mass effect or midline shift. Intracranial vasculature: Unremarkable Soft tissues: No acute or concerning abnormality. Visualized orbits: Orbital contents appear grossly intact. Calvarium/osseous structures: No evidence of calvarial fracture. Paranasal sinuses and mastoid air cells: Clear. Mild nasal septal deviation to the left anteriorly. MRI is more sensitive for detecting acute processes such as infarct, and may be considered if clinica lly warranted. IMPRESSION: No acute intracranial CT abnormality.
[2023-04-30 20:24] LABS: NT-Pro-B-Type Natriuretic Pept 151 pg/mL
[2023-04-30 20:27] VITALS: BP 167/98; PULSE 71; RESP 16
--- NOTE | 2023-04-30 20:41 | CT ---
EXAMINATION TYPE: CT iac wo con CT DLP: 381.8 mGycm, Automated exposure control for dose reduction was used. DATE OF EXAM: 04/30/2023 8:07 PM INDICATION: Patient age:Male; 62 years old; Reason for study: R ear pain; PHH. COMPARISON: Correlation with same-day CT head. TECHNIQUE: Multiple thin axial images were obtained through the temporal bones and internal auditory canals. Additional coronal reformatted images were obtained. No IV contrast was utilized. STENVER a nd POSCHL views were created on a separate work station. CT Contrast: None FINDINGS: Right Temporal Bone: External Ear: The external auditory canal is unremarkable, The tympanic membrane is present and unrem arkable. Middle Ear: The ossicles demonstrate a normal appearance. Prussak's space is clear and the scutum i s intact. There is no evidence of osseous erosion and the tegmen tympani is intact. Inner Ear: Cochlea, vestibule and semi circular canals are unremarkable. No evidence of carotid issac l dehiscence. Two and a half turns of the cochlea are identified. The vestibular aqueduct is not enl arged. Mastoid Air Cells: The mastoid air cells are clear. The tegmen mastoideum is intact. The aditus ad an trum is clear. Internal Auditory Canal: The internal auditory canal is unremarkable. Left Temporal Bone: External Ear: The external auditory canal is unremarkable, The tympanic membrane is present and unrem arkable. Middle Ear: The ossicles demonstrate a normal appearance. Prussak's space is clear and the scutum i s intact. There is no evidence of osseous erosion and the tegmen tympani is intact. Inner Ear: Cochlea, vestibule and semi circular canals are unremarkable. No evidence of carotid issac l dehiscence. Two and a half turns of the cochlea are identified. The vestibular aqueduct is not enl arged. Mastoid Air Cells: The mastoid air cells are clear. The tegmen mastoideum is intact. The aditus ad an trum is clear. Internal Auditory Canal: The internal auditory canal is unremarkable. IMPRESSION: Normal internal auditory canal study.
[2023-04-30] MEDS: predniSONE 20 MG TAB PO STA (21:00)
[2023-04-30] MEDS: valACYclovir HCL 1,000 MG TABLET PO STA (21:01)
[2023-04-30] MEDS: DEXAMETHASONE SOD PHOSPHATE 10 MG/ML 1 ML VIAL IVP STA (21:03)
== END 2023-04-30 21:12 | disposition home or self-care (01) ==
LOC: EC 19:33
DX: G51.0 Bell's palsy (principal); I25.10 Atherosclerotic heart disease of native coronary artery without angina pectoris; I10 Essential (primary) hypertension; F17.200 Nicotine dependence, unspecified, uncomplicated; Z79.899 Other long term (current) drug therapy; Z20.822 Contact with and (suspected) exposure to COVID-19; Z91.040 Latex allergy status; Z91.030 Bee allergy status; Z88.8 Allergy status to other drugs, medicaments and biological substances; Z79.82 Long term (current) use of aspirin
CPT/HCPCS: 36415; 93005; 83880; 80053; 83735; 84100; 84484; 85025; 81001; 87636; 70450; 70480; 99285; 96374; 96361; J1100; J7512

== ENCOUNTER → 2023-05-23 | Outpatient (CLI) | payer BC, MEDICARE ==
--- NOTE | 2023-05-23 15:54 | US ---
EXAMINATION TYPE: US kidneys/renal and bladder DATE OF EXAM: 05/23/2023 COMPARISON: US - 12/10/2022 CLINICAL INDICATION: Male, 62 years old with history of N28.1 RENAL CYST; Hx Partial right nephrectom y EXAM MEASUREMENTS: Right Kidney: 7.1 x 4.7 x 5.9 cm Left Kidney: 15.0 x 6.4 x 6.2 cm Post Void Residual Volume: NA mL Right Kidney: Partially surgically absent; otherwise WNL Left Kidney: Cyst within lower pole redemonstrated = 2.8 x 2.6 x 4.1 Bladder: wnl Bilateral Jets seen: Yes Normal Post Void Residual: NA Urinary bladder appears unremarkable. IMPRESSION: 1. Normal left kidney. Inferior pole left renal cyst again evident. 2. Postsurgical changes within the right kidney
== END | disposition home or self-care (01) ==
LOC: RADUSWWP 14:10
PROVIDERS: ATTEND Urology
DX: N28.1 Cyst of kidney, acquired (principal)
CPT/HCPCS: 76770

== ENCOUNTER → 2023-07-14 | Outpatient (CLI) | payer MEDICARE, BC ==
--- NOTE | 2023-07-14 22:40 | CTL ---
EXAMINATION TYPE: CT Low Dose Lung DATE OF EXAM ORDERED: 07/14/2023 HISTORY: Nicotine dependence, current smoker, 30 pack-year history. Lung cancer screening CT DLP: 126.[address] CTDI: 3.4 mGy Automated exposure control for dose reduction was used. SCREENING VISIT: Follow-up COMPARISON: CT Low Dose Lung cancer screening 06/23/2022, 12/19/2017 TECHNIQUE: Low dose computed tomography scan was performed through the chest at 1 mm thick sections a nd reconstructed images in multiple planes at 1 mm and [address] DIAGNOSTIC QUALITY: Satisfactory FINDINGS: Nodules: Stable right upper lobe 2 mm pulmonary nodule (series 4, image 29). Stable subpleural 3 mm pulmonary nodule right upper lobe (series 4, image 56). Stable 3 mm right upper lobe pulmonary nodule (series 4 , image 63). No new or enlarging pulmonary nodules. LUNGS: COPD: Severity: Moderate Fibrosis: Severity: Mild subpleural fibrosis at the lung bases Lymph nodes: None Other findings: None RIGHT PLEURAL SPACE: Effusion: None Calcification: None Thickening: None Pneumothorax: None LEFT PLEURAL SPACE: Effusion: None Calcification: None Thickening: None Pneumothorax: None HEART: Heart Size: Mildly Enlarged Coronary Calcification: Moderate Pericardial Effusion: None OTHER FINDINGS: Upper abdomen: None Bony thorax: Degenerative changes of the thoracic spine. Supraclavicular region: None Other: None IMPRESSION: COPD changes with stable pulmonary nodules from prior exam. No new or enlarging pulmonary nodules. CT LUNG RAD AND CT CHEST RECOMMENDATION: Lung-Rad 2 Benign Appearance or Behavior: Continue annual sc reening with LDCT in 12 months. S Modifier (other clinically significant findings): None
== END | disposition home or self-care (01) ==
LOC: RADCTMAIN 06:39
PROVIDERS: ATTEND Family Medicine
DX: Z12.2 Encounter for screening for malignant neoplasm of respiratory organs (principal); J44.89 Other specified chronic obstructive pulmonary disease; R91.8 Other nonspecific abnormal finding of lung field; F17.210 Nicotine dependence, cigarettes, uncomplicated
CPT/HCPCS: 71271

== ENCOUNTER → 2024-06-05 | Outpatient (CLI) | payer MEDICARE, BC ==
--- NOTE | 2024-06-05 08:06 | US ---
EXAMINATION TYPE: US kidneys/renal and bladder DATE OF EXAM: 06/05/2024 COMPARISON: Renal ultrasound 05/23/2023, 12/10/2022, CT abdomen and pelvis 08/13/2022 CLINICAL INDICATION: Male, 63 years old with history of N28.1 CYST; TECHNIQUE: Grayscale imaging of the bilateral kidneys and urinary bladder: FINDINGS: EXAM MEASUREMENTS: Right Kidney: 7.4x5.5x5.0 cm Left Kidney: 13.7x6.1x5.5 cm limited scan due to pt body habitus & overlying bowel Right Kidney: partial nephrectomy Multiple anechoic areas seen, Largest: 1. 3.2x3.3x2.6cm 2. 2.4x1.3x3.1cm Left Kidney: Anechoic area again seen: 2.4x2.7x3.0cm Prior US measurement(05/23/2023): 2.8x2.6x4.1cm Bladder: wnl Bilateral Jets seen: Yes There is no evidence for hydronephrosis at this point in time. No nephrolithiasis is seen. Corticome dullary differentiation is maintained bilaterally. Postsurgical changes from right partial nephrectom y. Simple right renal cysts with largest measuring up to 3.2 cm. Left renal simple cyst measuring up to 3.0 cm. Duplex left kidney is better appreciated on prior CT. The urinary bladder is anechoic. Thomas ateral ureteral jets identified. IMPRESSION: 1. No hydronephrosis or nephrolithiasis. 2. Bilateral simple appearing renal cysts. [facility], , 06/05/2024 8:04 AM
== END | disposition home or self-care (01) ==
LOC: RADUSWWP 07:10
PROVIDERS: ATTEND Urology
DX: N28.1 Cyst of kidney, acquired (principal)
CPT/HCPCS: 76770